=== PATIENT | male | born 2000 | race Two or more races ===

== ENCOUNTER 2019-12-11 12:31 | Emergency (ER) | payer OTHER ==
[~2019-12-11] VITALS: Ht 167.6 cm; Wt 63.5 kg
[2019-12-11 12:43] VITALS: BP 124/80
--- NOTE | 2019-12-11 12:57 | NUR ---
provided w/ wound care. d/c home in stable condition
== END 2019-12-11 12:58 | disposition home or self-care (01) ==
LOC: ER 12:36
DX: S61.215A Laceration without foreign body of left ring finger without damage to nail, initial encounter (principal); W26.8XXA Contact with other sharp object(s), not elsewhere classified, initial encounter; Y93.89 Activity, other specified; Y92.89 Other specified places as the place of occurrence of the external cause; Y99.0 Civilian activity done for income or pay